=== PATIENT | female | born 1990 ===

== ENCOUNTER 2017-05-01 12:58 | Emergency (ER) | payer OTHER ==
[2017-05-01 13:06] VITALS: BP 145/98; PULSE 75; RESP 16; TEMP 97; O2SAT 99
[2017-05-01] MEDS ORDERED: Sodium Chloride 0.9% 1,000 ML IV STA (14:01)
--- NOTE | 2017-05-01 14:06 | ED PDOC ---
Syncope/Near Syncope/Dizziness Time Seen by Provider: 05/01/17 13:16 Chief Complaint (Nursing): Dizziness/Lightheaded Chief Complaint (Provider): Dizzy Spell History Per: Patient History/Exam Limitations: no limitations Onset/Duration Of Symptoms: Hrs Current Symptoms Are (Timing): Still Present Additional Complaint(s): Magaly Kimball a 27 year old female, with a past medical history of iron deficient anemia and chronic anxiety presents to the ED, after she experienced a dizzy spell. The patient reports that the spell only lasted a few seconds but decided to come to the ED to get evaluated. she states after the dizzy spell passed she experienced a lindquist in her head. In addition, the patient states that for the past few weeks she has been experiencing painful pinching sensations in her breast. She reports that her symptoms have gotten worse but she still has not seen her PMD. Of note: Patient states she is currently not taking any medications for her anxiety. PMD: [facility] Past Medical History Reviewed: Historical Data, Nursing Documentation, Vital Signs Vital Signs: Last Vital Signs Temp 97.0 F L 05/01/17 13:05 Pulse 75 05/01/17 13:05 Resp 16 05/01/17 13:05 BP 145/98 H 05/01/17 13:05 Pulse Ox 99 05/01/17 13:05 - Medical History PMH: Anemia, Anxiety - Surgical History Surgical History: (x1) - Family History Family History: States: Unknown Family Hx - Social History Current smoker - smoking cessation education provided: No Ex-Smoker (has not smoked in the last 12 months): No Alcohol: Occasional Drugs: Denies - Home Medications Home Medications: Ambulatory Orders Medication Instructions Recorded Famotidine [Pepcid] 20 mg PO BID #20 tab 11/30/16 Ondansetron ODT [Zofran ODT] 4 mg PO Q8H PRN #20 odt 11/30/16 - Allergies Allergies/Adverse Reactions: Allergies Allergy/AdvReac Type Severity Reaction Status Date / Time Penicillins Allergy URTICARIA Verified 11/30/16 14:57 Review of Systems ROS Statement: Except As Marked, All Systems Reviewed And Found Negative Constitutional: Positive for: Other (pinching sensation in breasts) Neurological: Positive for: Dizziness (dizzy spell x1) Physical Exam - Reviewed Nursing Documentation Reviewed: Yes Vital Signs Reviewed: Yes - Physical Exam Appears: Positive for: Non-toxic, No Acute Distress Head Exam: Positive for: ATRAUMATIC, NORMAL INSPECTION, NORMOCEPHALIC Skin: Positive for: Normal Color, Warm, Dry. Negative for: Rash Eye Exam: Positive for: Normal appearance, EOMI, PERRL. Negative for: Nystagmus Neck: Positive for: Normal, Painless ROM, Supple Cardiovascular/Chest: Positive for: Regular Rate, Rhythm, Chest Non Tender. Negative for: Tachycardia Respiratory: Positive for: Normal Breath Sounds. Negative for: Rhonchi, Wheezing, Respiratory Distress Back: Positive for: Normal Inspection. Negative for: L CVA Tenderness, R CVA Tenderness Extremity: Positive for: Normal ROM. Negative for: Tenderness, Deformity, Swelling Neurologic/Psych: Positive for: Alert, Oriented - Laboratory Results Result Diagrams: 05/01/17 14:30 05/01/17 14:30 - ECG O2 Sat by Pulse Oximetry: 99 (RA) Pulse Ox Interpretation: Normal Medical Decision Making Medical Decision Makin Initial Impression: 27 year old female presenting with dizzy spell Initial Plan: * EKG * BMP * Udip * Upreg * CBC * NS 1000mls IV 1000mls/hr * Reevaluation - Scribe Attestation Documented by Amarilis Ragland acting as a scribe for Kailee Bill MD. Provider Attestation: All medical record entries made by the Scribe were at my direction and personally dictated by me. I have reviewed the chart and agree that the record accurately reflects my personal performance of the history, physical exam, medical decision making, and the department course for this patient. I have also personally directed, reviewed, and agree with the discharge instructions and disposition. Disposition - Clinical Impression Clinical Impression: Dizziness, Paresthesia - Patient ED Disposition Is Patient to be Admitted: Transfer of Care - Disposition Referrals: [facility] [Outside] (FOLLOW UP IN 1-2 WEEKS) Disposition: Transfer of Care Disposition Time: 15:00 Condition: GOOD Instructions: Lightheadedness (ED) Forms: [facility] ED School/Work Excuse Patient Signed Over To: Yadira Montelongo Present On Arrival: None
[2017-05-01 14:44] LABS: BASO % 0.3 % (0.0-2.0); EOS % 0.2 % (0.0-4.0); HEMATOCRIT 36.7 % (34.0-47.0); LYMPH # 1.1 K/uL (1.0-4.3); LYMPH % 19.8 % (20.0-40.0); MEAN CORPUSCULAR HEMOGLOBIN 27.9 pg (27.0-31.0); MEAN CORPUSCULAR HGB CONC 32.6 g/dL (33.0-37.0); MEAN PLATELET VOLUME 9.4 fl (7.2-11.7); MONO # 0.2 K/uL (0.0-0.8); NEUT # 4.1 K/uL (1.8-7.0); NEUT % 75.7 % (50.0-75.0); NRBC % 0.2 % (0.0-0.0); RED CELL DISTRIBUTION WIDTH 14.5 % (11.5-14.5); WHITE BLOOD COUNT 5.5 K/uL (4.8-10.8)
[2017-05-01 14:55] LABS: BLOOD UREA NITROGEN 8 mg/dl (7-17); CALCIUM 9.5 mg/dL (8.4-10.2); CARBON DIOXIDE 23 mmol/L (22-30); CHLORIDE 106 mmol/L (98-107); GFR AFRICAN-AMERICAN > 60; GLUCOSE,RANDOM 99 mg/dL (65-105); SODIUM 143 mmol/l (132-148)
[2017-05-01 14:56] LABS: MEAN CELL VOLUME 85.6 fl (81.0-99.0)
--- NOTE | 2017-05-01 15:02 | ED PDOC ---
- Laboratory Results Result Diagrams: 05/01/17 14:30 05/01/17 14:30 - ECG O2 Sat by Pulse Oximetry: 99 (RA) Pulse Ox Interpretation: Normal Medical Decision Making Medical Decision Making: Receiving sign out: patient signed out to me by Dr. Bill, pending Labs and reassessment Scribe Attestation: Documented by Yan Herrera, acting as a scribe for Yadira Montelongo MD Provider Scribe Attestation: All medical record entries made by the Scribe were at my direction and personally dictated by me. I have reviewed the chart and agree that the record accurately reflects my personal performance of the history, physical exam, medical decision making, and the department course for this patient. I have also personally directed, reviewed, and agree with the discharge instructions and disposition. Disposition - Clinical Impression Clinical Impression: Dizziness, Paresthesia - POA Present On Arrival: None - Disposition Referrals: [facility] [Outside] (FOLLOW UP IN 1-2 WEEKS) Disposition: Routine/Home Disposition Time: 15:00 Condition: GOOD Instructions: Lightheadedness (ED) Forms: [facility] ED School/Work Excuse Progress Note - Review of Symptoms Events since last encounter: 1502 Labs reviewed show no clinically significant abnormalities DW pt findings and all concerns and questions addressed. Advised f/u pmd.
--- NOTE | 2017-05-02 09:39 | CARD ---
APPROVED REPORT EKG Measurement Heart [id number] <Conclusion> Normal sinus rhythm Normal ECG
== END 2017-05-01 15:20 | disposition home or self-care (01) ==
LOC: H.ER 12:58
DX: R20.2 Paresthesia of skin (principal); R42 Dizziness and giddiness
CPT/HCPCS: 80048; 81025; 82948; 85025; 93005; 96360; 99285; J7040

== ENCOUNTER 2017-11-02 21:20 | Emergency (ER) | payer SELFPAY ==
[2017-11-02 21:37] VITALS: O2SAT 100
--- NOTE | 2017-11-02 21:59 | ED PDOC ---
HPI: Abdomen Time Seen by Provider: 11/02/17 21:47 Chief Complaint (Nursing): Abdominal Pain Chief Complaint (Provider): abdominal bloating History Per: Patient History/Exam Limitations: no limitations Onset/Duration Of Symptoms: Days (1 month) Current Symptoms Are (Timing): Still Present Additional Complaint(s): 27 y/o female presents for evaluation of abdominal bloating x 1 month. Patient states every time she eats she feels like her stomach is "going to pop". Patient also reports not having a menstrual period since September; states periods usually regular. Patient states she was evaluated at [facility] less than one month ago for same and had a normal pelvic ultrasound. Denies fever, nausea/vomiting, chest pain, shortness of breath, palpitations, changes in bowel movements, urinary symptoms. Past Medical History Reviewed: Historical Data, Nursing Documentation, Vital Signs Vital Signs: Last Vital Signs Temp 98.3 F 11/02/17 21:34 Pulse 76 11/02/17 21:34 Resp 16 11/02/17 21:34 BP Pulse Ox 100 11/02/17 21:59 - Medical History PMH: Anemia, Anxiety - Surgical History Surgical History: (x1) - Family History Family History: States: Unknown Family Hx - Home Medications Home Medications: Ambulatory Orders Medication Instructions Recorded Famotidine [Pepcid] 20 mg PO BID #20 tab 11/30/16 Ondansetron ODT [Zofran ODT] 4 mg PO Q8H PRN #20 odt 11/30/16 Polyethylene Glycol 3350 [Miralax] 17 gm PO DAILY PRN #5 powd.pack 11/02/17 Simethicone 125 mg PO QID PRN #50 capsule 11/02/17 - Allergies Allergies/Adverse Reactions: Allergies Allergy/AdvReac Type Severity Reaction Status Date / Time Penicillins Allergy URTICARIA Verified 11/02/17 21:34 Review of Systems ROS Statement: Except As Marked, All Systems Reviewed And Found Negative Gastrointestinal: Positive for: Other (bloating) Physical Exam - Reviewed Nursing Documentation Reviewed: Yes Vital Signs Reviewed: Yes - Physical Exam Appears: Positive for: Well, Non-toxic, No Acute Distress Head Exam: Positive for: ATRAUMATIC, NORMAL INSPECTION, NORMOCEPHALIC Skin: Positive for: Normal Color Eye Exam: Positive for: Normal appearance ENT: Positive for: Normal ENT Inspection Cardiovascular/Chest: Positive for: Regular Rate, Rhythm Respiratory: Positive for: Normal Breath Sounds Gastrointestinal/Abdominal: Positive for: Normal Exam, Bowel Sounds, Soft. Negative for: Tenderness Back: Positive for: Normal Inspection Extremity: Positive for: Normal ROM Neurologic/Psych: Positive for: Alert, Oriented - Laboratory Results Result Diagrams: 11/02/17 22:05 11/02/17 22:05 - ECG O2 Sat by Pulse Oximetry: 100 - Other Rad obstructive series X-Ray: Viewed By Al X-Ray Interpretation: +moderate stool/gas; no air-fluid levels - Progress ED Course And Treament: labs, urine, xray Patient educated on findings, discharged with rx Miralax, simethicone Follow up PMD 2-3 days. Return precautions given. Disposition - Clinical Impression Clinical Impression: Abdominal bloating, Constipation - Patient ED Disposition Is Patient to be Admitted: No Counseled Patient/Family Regarding: Studies Performed, Diagnosis, Need For Followup, Rx Given - Disposition Referrals: [facility] [Outside] Disposition: Routine/Home Disposition Time: 23:46 Condition: IMPROVED Prescriptions: Polyethylene Glycol 3350 [Miralax] 17 gm PO DAILY PRN #5 powd.pack PRN Reason: Constipation Simethicone 125 mg PO QID PRN #50 capsule PRN Reason: gas Instructions: Gas and Bloating, Constipation in Adults Forms: [facility] (Italian), [facility] ED School/Work Excuse
[2017-11-02 22:10] LABS: BASO % 0.3 % (0.0-2.0); EOS # 0.1 K/uL (0.0-0.7); EOS % 1.3 % (0.0-4.0); HEMOGLOBIN 12.2 g/dL (12.0-16.0); LYMPH # 3.4 K/uL (1.0-4.3); LYMPH % 37.6 % (20.0-40.0); MEAN CELL VOLUME 83.6 fl (81.0-99.0); MEAN CORPUSCULAR HGB CONC 33.5 g/dL (33.0-37.0); MEAN PLATELET VOLUME 9.1 fl (7.2-11.7); MONO # 0.5 K/uL (0.0-0.8); MONO % 5.7 % (0.0-10.0); NEUT # 4.9 K/uL (1.8-7.0); NEUT % 55.1 % (50.0-75.0); NRBC % 0.1 % (0.0-0.0); RBC 4.35 Mil/uL (3.80-5.20); RED CELL DISTRIBUTION WIDTH 14.5 % (11.5-14.5)
[2017-11-02 22:19] LABS: ALB/GLOB RATIO 1.2 (1.0-2.1); ALBUMIN 4.5 g/dL (3.5-5.0); ALT/SGPT 33 U/L (9-52); AST/SGOT 26 U/L (14-36); BLOOD UREA NITROGEN 10 mg/dl (7-17); CALCIUM 9.5 mg/dL (8.4-10.2); GFR AFRICAN-AMERICAN > 60; GFR NON-AFRICAN AMERICAN > 60; LIPASE 97 U/L (23-300)
[2017-11-02 23:57] VITALS: BP 132/78; PULSE 78; RESP 18; TEMP 98.5
--- NOTE | 2017-11-03 11:15 | RAD ---
PROCEDURE: Radiographs of the chest and abdomen (obstructive series) HISTORY: abd pain COMPARISON: No prior. TECHNIQUE: AP radiograph of the chest, with upright and supine radiographs of the abdomen. FINDINGS: CHEST: Lungs: Clear. Cardiovascular: Normal size heart. No pulmonary vascular congestion. Pleura: No pleural fluid. No pneumothorax. Other findings: None. ABDOMEN AND PELVIS: Bowel: Unremarkable bowel gas pattern. No evidence of mechanical obstruction. Free air: None. Bones: Unremarkable. Other findings: None. IMPRESSION: Unremarkable radiographs of chest and abdomen. No evidence of mechanical bowel obstruction.
== END 2017-11-02 23:55 | disposition home or self-care (01) ==
LOC: H.ER 21:20
DX: K59.00 Constipation, unspecified (principal); F41.9 Anxiety disorder, unspecified; Z88.0 Allergy status to penicillin